=== PATIENT | male | born 1955 | race Caucasian/White ===

== ENCOUNTER 2016-04-15 17:30 | Emergency (ER) | payer OTHER ==
[~2016-04-15] VITALS: Ht 180.3 cm; Wt 65.8 kg
[2016-04-15 18:24] VITALS: BP 134/77
[2016-04-15] MEDS ORDERED: LORAZEPAM 1 MG TABLET ONE (19:24)
[2016-04-15] MEDS ORDERED: LORAZEPAM 1 MG TABLET PO ONE (19:30)
== END 2016-04-15 19:33 | disposition home or self-care (01) ==
LOC: ER 17:38
DX: F41.9 Anxiety disorder, unspecified (principal); F17.200 Nicotine dependence, unspecified, uncomplicated
CPT/HCPCS: 99284; A4606; Z7610

== ENCOUNTER 2016-04-17 17:25 | Emergency (ER) | payer OTHER ==
[~2016-04-17] VITALS: Ht 180.3 cm; Wt 54.9 kg
[2016-04-17] MEDS ORDERED: LORAZEPAM 1 MG TABLET ONE ×2 (17:34→21:31)
[2016-04-17 17:42] LABS: BASOPHILS # (AUTO) 0.1 /CMM (0.0-0.2); BASOPHILS % (AUTO) 0.8 % (0.0-2.0); DIFF TOTAL % 100 %; EOSINOPHILS # (AUTO) 0.1 /CMM (0.0-0.7); EOSINOPHILS % (AUTO) 0.8 % (0.0-6.0); HEMATOCRIT 40 % (39-51); HEMOGLOBIN 13.3 g/dL (13.5-17.5); LYMPHOCYTES # (AUTO) 1.3 /CMM (0.8-4.8); LYMPHOCYTES % (AUTO) 13.6 % (20.0-44.0); MEAN CORPUSCULAR HEMOGLOBIN 32 PG (26.0-33.0); MEAN CORPUSCULAR HGB CONC 33 g/dl (31.0-36.0); MEAN CORPUSCULAR VOLUME 98 fL (80-96); MONOCYTES # (AUTO) 0.5 /CMM (0.1-1.30); MONOCYTES % (AUTO) 4.8 % (2.0-12.0); NEUTROPHILS # (AUTO) 7.5 /CMM (1.8-8.9); PLATELET COUNT (AUTO) 265 /CMM (150-450); RED BLOOD CELL COUNT(AUTO) 4.12 MIL/uL (4.5-6.0); WHITE BLOOD COUNT (AUTO) 9.5 K/uL (4.3-11.0)
[2016-04-17 17:51] LABS: ANION GAP 11 (5-14); CARBON DIOXIDE 30 mmol/L (21-32); CHLORIDE 106 mmol/L (98-107); CREATININE 0.9 mg/dL (0.6-1.3); GFR 87 mL/min (>60); GLUCOSE 117 mg/dL (74-106); POTASSIUM 3.8 mmol/L (3.5-5.1); SODIUM SERUM 143 mmol/L (136-145); UREA NITROGEN, BLOOD 14 mg/dL (7-18)
[2016-04-17] MEDS ORDERED: LORAZEPAM 1 MG TABLET PO ONE ×2 (18:00→21:30)
[2016-04-17 18:40] LABS: CANNABINOID, URINE NEGATIVE (NEGATIVE); PHENCYCLIDINE SCREEN,URINE NEGATIVE (NEGATIVE)
[2016-04-17 20:58] VITALS: BP 118/65
[2016-04-17] MEDS ORDERED: LORAZEPAM INJ 2 MG/ML VIAL ONE (21:30)
== END 2016-04-17 22:02 ==
LOC: ER 17:27
DX: F41.9 Anxiety disorder, unspecified (principal); R41.82 Altered mental status, unspecified; F17.200 Nicotine dependence, unspecified, uncomplicated
CPT/HCPCS: 36415; 80048; 80305; 85025; 99285; A4606; G0480; Z7610; J2060

== ENCOUNTER 2016-09-06 11:23 | Emergency (ER) | payer OTHER ==
[~2016-09-06] VITALS: Ht 172.7 cm; Wt 56.7 kg
[2016-09-06 11:25] VITALS: BP 152/90
[2016-09-06] MEDS ORDERED: OLANZAPINE 5 MG TABLET ONE (12:16)
[2016-09-06] MEDS ORDERED: LORAZEPAM 1 MG TABLET ONE (12:16)
[2016-09-06] MEDS ORDERED: OLANZAPINE 5 MG TABLET PO ONE (12:30)
[2016-09-06] MEDS ORDERED: LORAZEPAM 1 MG TABLET PO ONE (12:30)
== END 2016-09-06 13:45 | disposition home or self-care (01) ==
LOC: ER 11:24
DX: F41.9 Anxiety disorder, unspecified (principal); F20.9 Schizophrenia, unspecified; F17.200 Nicotine dependence, unspecified, uncomplicated
CPT/HCPCS: A4606; Z7610

== ENCOUNTER 2016-10-09 12:06 | Emergency (ER) | payer OTHER ==
[~2016-10-09] VITALS: Ht 172.7 cm; Wt 59.0 kg
[2016-10-09 12:12] VITALS: BP 133/93
--- NOTE | 2016-10-09 12:55 | NUR ---
DANETTE REYES AT BEDSIDE FOR EVAL
[2016-10-09] MEDS ORDERED: LORAZEPAM 1 MG TABLET ONE (13:18)
[2016-10-09] MEDS ORDERED: OLANZAPINE 5 MG TABLET ONE (13:19)
[2016-10-09] MEDS ORDERED: BENZTROPINE MESYLATE (1 MG) 1 MG TABLET ONE (13:20)
[2016-10-09] MEDS ORDERED: OLANZAPINE 5 MG/TAB.RAPDIS PO ONE (13:30)
[2016-10-09] MEDS ORDERED: BENZTROPINE MESYLATE (1 MG) 1 MG TABLET PO ONE (13:30)
[2016-10-09] MEDS ORDERED: LORAZEPAM 1 MG TABLET PO ONE (13:30)
== END 2016-10-09 14:08 | disposition home or self-care (01) ==
LOC: ER 12:08
DX: F41.9 Anxiety disorder, unspecified (principal); F25.9 Schizoaffective disorder, unspecified; F17.200 Nicotine dependence, unspecified, uncomplicated
CPT/HCPCS: A4606; Z7610

== ENCOUNTER 2016-10-22 14:19 | Inpatient (IN) | payer OTHER ==
[~2016-10-22] VITALS: Ht 180.3 cm; Wt 52.2 kg
--- NOTE | 2016-10-22 14:20 | NUR ---
PT BECKA FROM HOME. HERE FOR ANXIETY, REQUESTING MEDS. SEEN IN ER FOR SAME REASON. DENIES SI/HI. PLACED ON MONITOR. NAD NOTED. AWAITING MD HEBERT.
--- NOTE | 2016-10-22 14:42 | NUR ---
CALLED RASHMI FOR PSYCH EVALUATION.
[2016-10-22] MEDS ORDERED: OLANZAPINE 5 MG TABLET ONE (14:51)
--- NOTE | 2016-10-22 14:51 | NUR ---
DR GRULLON AT BEDSIDE FOR EVAL.
[2016-10-22] MEDS ORDERED: OLANZAPINE 5 MG TABLET PO ONE (15:00)
[2016-10-22] MEDS ORDERED: BENZ2TAB7 PO (16:06)
[2016-10-22] MEDS ORDERED: DONE5TAB34 PO (16:06)
[2016-10-22] MEDS ORDERED: LORA2TAB PO (16:06)
[2016-10-22] MEDS ORDERED: OLAN20TA3 PO (16:06)
[2016-10-22 16:16] LABS: APPEARANCE,URINE Clear (CLEAR); BILIRUBIN,URINE Negative (NEGATIVE); BLOOD, URINE Trace-intact Ery/uL (NEGATIVE); COLOR,URINE Yellow (YELLOW); KETONES,URINE Negative (NEGATIVE); LEUKOCYTE ESTERASE ,URINE Trace (NEGATIVE); NITRITE, URINE Negative (NEGATIVE); PROTEIN,URINE Trace mg/dl (NEGATIVE); UGLUCOSE Negative (NEGATIVE); UROBILINOGEN,URINE 0.2 EU/dL (0.2)
[2016-10-22 16:23] LABS: BASOPHILS # (AUTO) 0.1 /CMM (0.0-0.2); BASOPHILS % (AUTO) 0.7 % (0.0-2.0); EOSINOPHILS % (AUTO) 0.3 % (0.0-6.0); HEMATOCRIT 44 % (39-51); HEMOGLOBIN 14.5 g/dL (13.5-17.5); LYMPHOCYTES # (AUTO) 1.2 /CMM (0.8-4.8); LYMPHOCYTES % (AUTO) 13.8 % (20.0-44.0); MEAN CORPUSCULAR HEMOGLOBIN 32 PG (26.0-33.0); MEAN CORPUSCULAR HGB CONC 33 g/dl (31.0-36.0); MEAN CORPUSCULAR VOLUME 98 fL (80-96); MONOCYTES # (AUTO) 0.3 /CMM (0.1-1.30); MONOCYTES % (AUTO) 2.9 % (2.0-12.0); NEUTROPHILS # (AUTO) 7.4 /CMM (1.8-8.9); NEUTROPHILS % (AUTO) 82.3 % (43.0-81.0); PLATELET COUNT (AUTO) 298 /CMM (150-450); RED BLOOD CELL COUNT(AUTO) 4.51 MIL/uL (4.5-6.0)
[2016-10-22 16:29] LABS: BACTERIA,URINE Few /HPF (None Seen); SQUAMOUS EPITHELIAL CELL,UR Rare /HPF (None Seen)
[2016-10-22 16:32] LABS: CALCIUM, SERUM 9.3 mg/dL (8.5-10.1); CARBON DIOXIDE 28 mmol/L (21-32); CHLORIDE 105 mmol/L (98-107); CREATININE 0.7 mg/dL (0.6-1.3); GLUCOSE 104 mg/dL (74-106); POTASSIUM 4.2 mmol/L (3.5-5.1); SODIUM SERUM 141 mmol/L (136-145); UREA NITROGEN, BLOOD 16 mg/dL (7-18)
[2016-10-22 16:36] LABS: ALANINE AMINOTRANSFERASE 19 U/L (12-78); ALBUMIN 3.8 g/dL (3.4-5.0); ALCOHOL, BLOOD < 3 mg/dL (0-0); ALKALINE PHOSPHATASE 75 U/L (46-116); ASPARTATE AMINOTRANSFERASE 16 U/L (15-37); BILIRUBIN,DIRECT 0.1 mg/dL (0.0-0.2); BILIRUBIN,TOTAL 0.3 mg/dL (0.2-1.0); TOTAL PROTEIN, SERUM 7.1 g/dL (6.4-8.2)
[2016-10-22 16:39] LABS: TROPONIN I < 0.017 ng/mL (0.00-0.056)
[2016-10-22 16:58] LABS: THYROID STIMULATING HORMONE 0.481 uIU/mL (0.358-3.74)
--- NOTE | 2016-10-22 17:06 | NUR ---
REPORT GIVEN TO EDA. PT AWAITING TANSFER TO FLOOR.
[2016-10-22 17:14] LABS: BAND % (MANUAL) 0 % (0.0-5.0); BASOPHILS % (MANUAL) 0 % (0.0-2.0); EOSINOPHILS % (MANUAL) 0 % (0-4); LYMPHOCYTES % (MANUAL) 17 % (16-48); MONOCYTES % (MANUAL) 3 % (0-11.0); NEUTROPHILS % (MANUAL) 80 (42-76)
[2016-10-22] MEDS ORDERED: ACETAMINOPHEN 325 MG TABLET PO PRN (18:30)
[2016-10-22] MEDS ORDERED: MAGNESIUM HYDROXIDE 30 ML UDC PO PRN (18:30)
[2016-10-22] MEDS ORDERED: LORAZEPAM 0.5 MG TABLET PO PRN (18:30)
[2016-10-22] MEDS ORDERED: MAG HYDROX/AL HYDROX/SIMETH 30 ML UDC PO PRN (18:30)
--- NOTE | 2016-10-22 18:36 | NUR ---
LACQUER SPRAYER-NOTES ADMITTED 61 Y.O MALE PATIENT. PATIENT IS UNDER THE CARE OF DR. ODONNELL (PSYCHIATRIST) WHICH HE'S AWARE OF PATIENT ADMISSION IN THE UNIT WITH ORDERS. DR. YAÑEZ (MEDICAL MD) ALREADY RECONCILE PATIENT MEDICATIONS. PATIENT AWAKE,A/O X2 AMBULATORY WITH STEADY GAIT. VITAL SIGN TAKEN AND CONTRABAND DONE. WILL ENDORSE TO THE FEED MILL OPERATOR FOR THE ADMISSION PROCESS AND CONTINUITY OF CARE.
[2016-10-22 18:44] VITALS: BP 131/83
--- NOTE | 2016-10-22 19:40 | NUR ---
rn initial notes: received report from ana armstrong, pt admitted from home, a 61y/o male, living by himself, pt admitted for GD, pt is a/o x2 cooperative, ambulatory, with steady gait, denies any pain or discomfort at this time, respiration even and unlabored, pt denies any plans of hurting himself, denies any visual or auditory hallucination, patient is frail looking, dirty, unkempt with long dirty fingernails and toenails, pt on 5150 hold under the care of dr penny psychiatrist, and dr augustin for medical issues, safety precautions initiated, will continue to monitor patient for safety [id number] and for any changes in behavior.
[2016-10-22 20:00] VITALS: BP 136/59
--- NOTE | 2016-10-22 20:00 | NUR ---
rn notes: maxillofacial prosthetics dentist assited pt to take shower, afterwards body check performed, taken photos of skin issues printed and attached to chart, patient stated he feels a lot better after taking a shower, also pt noted to be lip smacking, no dentures,
--- NOTE | 2016-10-22 20:42 | NUR ---
rn notes: received phone call from patient's brother, jossie guerrero, asking about pt's condition and behavior, and stated he will call back tomorrow to check again about his brother. patient's brother is very appreciative of how his brother is being taken care of.
[2016-10-22] MEDS: ZOLPIDEM TARTRATE 5 MG TABLET PO PRN (21:56)
--- NOTE | 2016-10-22 21:56 | NUR ---
PRN AMBIEN: PT REQUESTED FOR AMBIEN FOR SLEEPING, PRN AMBIEN 5MG TAB PO ADMINISTERED TO THE PT
--- NOTE | 2016-10-23 03:11 | NUR ---
PRN TYLENOL: PT C/O HEAD ACHE 05/13 REQUESTING FOR TYLENOL, PRN TYLENOL 650 MG TAB PO ADMINISTERED TO THE PT AT THIS TIME
--- NOTE | 2016-10-23 06:51 | NUR ---
RN CLOSING NOTES: PT IN BED, AWAKE, REMAINS A/O X2-3, DENIES ANY SOB, DENIES ANY CHEST PAIN OR DISCOMFORT EXCEPT THAT HE'S C/O HE'S HUNGRY, SNACK PROVIDED TO THE PT, AND INFORMED THAT BREAKFAST WILL BE AT 0745 TO 0800AM. NO UNTOWARD EVENT HAPPENED THROUGHOUT THE SHIFT, PT REMAINS CALM AND COOPERATIVE, DENIES ANY SI/HI, WILL ENDORSE TO DAY RN FOR MEG.
[2016-10-23 07:40] LABS: ALBUMIN 3.6 g/dL (3.4-5.0); BILIRUBIN,TOTAL 0.4 mg/dL (0.2-1.0); CALCIUM, SERUM 9.5 mg/dL (8.5-10.1); CREATININE 0.8 mg/dL (0.6-1.3); POTASSIUM 4.2 mmol/L (3.5-5.1); TOTAL PROTEIN, SERUM 7.1 g/dL (6.4-8.2)
[2016-10-23 08:04] VITALS: BP 111/51
[2016-10-23] MEDS: DONEPEZIL 5 MG TABLET PO SCH (09:03)
[2016-10-23] MEDS: BENZTROPINE MESYLATE (1 MG) 1 MG TABLET PO SCH ×2 (12:08→17:10)
[2016-10-23] MEDS: ESCITALOPRAM OXALATE (10 MG) 10 MG TABLET PO SCH (12:08)
[2016-10-23] MEDS: OLANZAPINE 5 MG/TAB.RAPDIS PO SCH ×2 (12:09→21:28)
[2016-10-23 16:00] VITALS: BP 127/77
[2016-10-23 20:06] VITALS: BP 132/86
[2016-10-23] MEDS: ZOLPIDEM TARTRATE 5 MG TABLET PO PRN (21:28)
[2016-10-24 08:00] VITALS: BP 127/72
[2016-10-24] MEDS: ESCITALOPRAM OXALATE (10 MG) 10 MG TABLET PO SCH (08:19)
[2016-10-24] MEDS: DONEPEZIL 5 MG TABLET PO SCH (08:19)
[2016-10-24] MEDS: BENZTROPINE MESYLATE (1 MG) 1 MG TABLET PO SCH ×2 (08:20→16:48)
[2016-10-24] MEDS: OLANZAPINE 5 MG/TAB.RAPDIS PO SCH ×2 (08:20→21:08)
[2016-10-24] MEDS: NICOTINE PATCH (21MG) 21 MG PATCH.TD24 TD SCH (08:20)
--- NOTE | 2016-10-24 14:23 | NUR ---
[id number]: PT IS A CURRENT SMOKER AND IS ON NICOTINE PATCH 21 MG DAILY.
--- NOTE | 2016-10-24 14:31 | NUR ---
UR update: billet worker spoke to TIMOTHY ABRAMS PHONE [phone] regarding clinical review. Timothy stated that a clinical review was due October 29, 2016 and should be faxed to Emily Gallo at [phone]. billet worker will follow-up.
[2016-10-24 16:00] VITALS: BP 95/63
--- NOTE | 2016-10-24 16:30 | NUR ---
Initial Discharge Note: Patient lives at home with his brother [address] [facility]. [address] [place] [address]. ([phone]). Patient wants to return home upon discharge. maintenance and repair worker spoke to patient's brother Niles Quan ([phone]) who stated that he would like patient to return home upon discharge. maintenance and repair worker will help form a safe and proper discharge.
[2016-10-24 16:33] LABS: CHOLESTEROL 164 mg/dL (<200); HDL CHOLESTEROL 42 mg/dL (40-60); LDL 100 mg/dL (0-99); TRIGLYCERIDES 120 mg/dL (30-150)
[2016-10-24] MEDS: BOOST PLUS FOOD-VANILLA 237 ML BOX PO SCH (18:13)
[2016-10-24] MEDS: ZOLPIDEM TARTRATE 5 MG TABLET PO PRN (21:09)
[2016-10-24 22:16] VITALS: BP 107/67
[2016-10-25 08:00] VITALS: BP 112/83
[2016-10-25] MEDS: ESCITALOPRAM OXALATE (10 MG) 10 MG TABLET PO SCH (08:14)
[2016-10-25] MEDS: NICOTINE PATCH (21MG) 21 MG PATCH.TD24 TD SCH (08:14)
[2016-10-25] MEDS: OLANZAPINE 5 MG/TAB.RAPDIS PO SCH ×2 (08:14→21:11)
[2016-10-25] MEDS: BENZTROPINE MESYLATE (1 MG) 1 MG TABLET PO SCH ×2 (08:14→16:06)
[2016-10-25] MEDS: DONEPEZIL 5 MG TABLET PO SCH (08:15)
[2016-10-25] MEDS: BOOST PLUS FOOD-VANILLA 237 ML BOX PO SCH ×2 (08:46→16:06)
--- NOTE | 2016-10-25 11:50 | NUR ---
WOUND CARE CONSULT: PT SEEN FOR FEET AND TOES. PT NOTED TO HAVE DISCOLORATION TO RT ANKLE AREA AND NOTED TO HAVE VERY LONG THICKENED NAILS. RECOMMEND PODIATRY. DISCUSSED WITH NURSING STAFF. PT IS AMBULATORY AND CONTINENT. CURRENT SHAI SCORE IS 19.
--- NOTE | 2016-10-25 13:16 | NUR ---
Per patient's brother Niles Quan, Patient has a perinatal social worker Angel Harper ([phone]). kitchen and counter worker will follow-up.
[2016-10-25 15:56] VITALS: BP 134/70
[2016-10-25 20:10] VITALS: BP 106/61
[2016-10-25] MEDS: ZOLPIDEM TARTRATE 5 MG TABLET PO PRN (21:11)
[2016-10-26 08:00] VITALS: BP 108/75
[2016-10-26] MEDS: BENZTROPINE MESYLATE (1 MG) 1 MG TABLET PO SCH ×2 (08:16→17:55)
[2016-10-26] MEDS: DONEPEZIL 5 MG TABLET PO SCH (08:17)
[2016-10-26] MEDS: OLANZAPINE 5 MG/TAB.RAPDIS PO SCH ×2 (08:17→21:37)
[2016-10-26] MEDS: NICOTINE PATCH (21MG) 21 MG PATCH.TD24 TD SCH (08:17)
[2016-10-26] MEDS: ESCITALOPRAM OXALATE (10 MG) 10 MG TABLET PO SCH (08:17)
[2016-10-26] MEDS: BOOST PLUS FOOD-VANILLA 237 ML BOX PO SCH ×2 (08:20→17:56)
--- NOTE | 2016-10-26 11:17 | NUR ---
cable worker helper spoke to patient's high school social studies teacher Angel Harper ([phone]) from the [facility]. Angel stated that he would fax over a list of medications and requested for the H&P to be faxed to patient's psychiatrist Dr. Burns (fax: [phone]/ phone: [phone]) upon discharge. cable worker helper will follow-up.
--- NOTE | 2016-10-26 11:26 | NUR ---
logging worker spoke to patient's brother Niles Quan ([phone]) who stated that he cannot pickup driver the patient but would be home to greet the patient. Per patient's brother, patient can be transported via taxi. logging worker will follow-up.
--- NOTE | 2016-10-26 11:53 | NUR ---
Per patient's social security assessor Arvind Harper ([phone]), patient has an appointment with his psychiatrist Dr. Burns On November 04, 2016 at 3:15pm [id number] [place] [address]. [address]nd floor, [place] [address] ([phone]).
[2016-10-26 16:07] VITALS: BP 98/58
--- NOTE | 2016-10-26 19:30 | NUR ---
RN NOTES RECEIVED PATIENT IN BED AWAKE, AO X 3, ABLE TO MAKE NEEDS KNOWN. NO ACUTE DISTRESS NOTED. DENIES ANY PAIN AT THIS TIME. SAFETY REMINDERS GIVEN. ON LOW BED WITH BILATERAL SIDE RAILS UP. WILL CONTINUE TO MONITOR Q 15 MINS AND PRN.
[2016-10-26 20:00] VITALS: BP 102/54
[2016-10-26 20:10] VITALS: BP 102/54
[2016-10-26] MEDS: ZOLPIDEM TARTRATE 5 MG TABLET PO PRN (21:39)
--- NOTE | 2016-10-27 06:14 | NUR ---
RN NOTES PATIENT IN BED ASLEEP, AROUSABLE. RESPIRATIONS EVEN. NO SIGNS OF PAIN NOTED. DUE MEDS GIVEN WITH NO ASE NOTED. NEEDS ATTENDED. SAFETY PRECAUTIONS AND COMFORT MEASURES IN PLACE. WILL GIVE REPORT TO DAY SHIFT FOR CONTINUITY OF CARE.
[2016-10-27 08:00] VITALS: BP 111/58
[2016-10-27] MEDS: DONEPEZIL 5 MG TABLET PO SCH (08:38)
[2016-10-27] MEDS: NICOTINE PATCH (21MG) 21 MG PATCH.TD24 TD SCH (08:38)
[2016-10-27] MEDS: ESCITALOPRAM OXALATE (10 MG) 10 MG TABLET PO SCH (08:39)
[2016-10-27] MEDS: BENZTROPINE MESYLATE (1 MG) 1 MG TABLET PO SCH ×2 (08:39→16:23)
[2016-10-27] MEDS: OLANZAPINE 5 MG/TAB.RAPDIS PO SCH ×2 (08:39→21:36)
[2016-10-27] MEDS: BOOST PLUS FOOD-VANILLA 237 ML BOX PO SCH ×2 (10:23→18:13)
[2016-10-27 15:35] VITALS: BP 101/76
[2016-10-27 20:00] VITALS: BP 126/71
[2016-10-27] MEDS: ZOLPIDEM TARTRATE 5 MG TABLET PO PRN (21:37)
[2016-10-28 08:00] VITALS: BP 115/83
[2016-10-28] MEDS: BOOST PLUS FOOD-VANILLA 237 ML BOX PO SCH ×2 (08:17→17:15)
[2016-10-28] MEDS: BENZTROPINE MESYLATE (1 MG) 1 MG TABLET PO SCH ×2 (09:04→17:16)
[2016-10-28] MEDS: ESCITALOPRAM OXALATE (10 MG) 10 MG TABLET PO SCH (09:04)
[2016-10-28] MEDS: DONEPEZIL 5 MG TABLET PO SCH (09:04)
[2016-10-28] MEDS: NICOTINE PATCH (21MG) 21 MG PATCH.TD24 TD SCH (09:04)
[2016-10-28] MEDS: OLANZAPINE 5 MG/TAB.RAPDIS PO SCH ×2 (09:06→22:00)
--- NOTE | 2016-10-28 14:29 | NUR ---
Discharge note: discharge back home with his brother, Niles [phone] to [address] [facility] [address] [facility] [address]. Pt's brother arranged transportation to picker and sorter load and unload at 1:00PM but they may be late. Per Arvind Harper ([phone]), patient has an appointment with his psychiatrist Dr. Burns On November 04, 2016 at 3:15pm [address] [facility]. [address]nd floor, [place] [address] ([phone]) and will discuss substance abuse. Pt. is a smoker, hence, referred to [facility] at [address] [facility] on Monday at 5:30 PM. Pt's discharge instructions will be provided to the patient.
[2016-10-28 15:54] VITALS: BP 120/68
[2016-10-28 20:00] VITALS: BP 108/59
[2016-10-28] MEDS: ZOLPIDEM TARTRATE 5 MG TABLET PO PRN (22:00)
[2016-10-29 08:00] VITALS: BP 108/67
--- NOTE | 2016-10-29 08:32 | NUR ---
DR. ODONNELL GAVE AN ORDER TO D/C HOLD AND D/C TODAY. PT. WITHOUT DISTRESS, DENIES SUICIDAL AND HOMICIDAL. TO FOLLOW UP WITH PSYCH AND MEDICAL DOCTORS.
[2016-10-29] MEDS: BOOST PLUS FOOD-VANILLA 237 ML BOX PO SCH (08:33)
[2016-10-29] MEDS: ESCITALOPRAM OXALATE (10 MG) 10 MG TABLET PO SCH (08:55)
[2016-10-29] MEDS: OLANZAPINE 5 MG/TAB.RAPDIS PO SCH (08:55)
[2016-10-29] MEDS: NICOTINE PATCH (21MG) 21 MG PATCH.TD24 TD SCH (08:55)
[2016-10-29] MEDS: BENZTROPINE MESYLATE (1 MG) 1 MG TABLET PO SCH (08:55)
[2016-10-29] MEDS: DONEPEZIL 5 MG TABLET PO SCH (08:55)
--- NOTE | 2016-10-29 10:11 | NUR ---
CALLED JOSE ALBERTO THE BROTHER AT [phone] AND WAS NOTIFIED ABOUT THE DISCHARGE AND SAID HIS OTHER BROTHER WILL COME TO PICK HIM UP AT 1:00 PM.
--- NOTE | 2016-10-29 13:32 | NUR ---
SHREDDED FILLER MACHINE WRAPPER LAYER-NOTES PATIENT D/Cd TO HOME TODAY. DR. ODONNELL AND DR. FLEMING AWARE AND AGREES OF PATIENT DISCHARGE.PATIENT DID NOT VERBALIZE SI/HI,DENIES VISUAL/AUDITORY HALLUCINATIONS AT THE TIME OF DISCHARGE. ALL DISCHARGE MEDICATIONS WAS REVIEWED WITH THE PATIENT AND HIS BROTHER ZIGGY. RX WAS GIVEN TO THE BROTHER. PATIENT REFUSED BODY ASSESSMENT PRIOR TO THE DISCHARGE. PATIENT LEFT THE UNIT IN STABLE CONDITION WITH ALL HIS BELONGINGS. WAS EAR PULL MACHINE OPERATOR BY HIS BROTHER ZIGGY VIA PRIVATE CAR.
== END 2016-10-29 13:30 | disposition home or self-care (01) | DRG 885 ==
LOC: ER 14:21 → GPS 16:50
PROVIDERS: ADMIT Psychiatry & Neurology Psychiatry; ATTEND Psychiatry & Neurology Psychiatry
DX: F25.1 Schizoaffective disorder, depressive type (principal); F29 Unspecified psychosis not due to a substance or known physiological condition; Z91.14 Patient's other noncompliance with medication regimen; F41.0 Panic disorder [episodic paroxysmal anxiety]; Z79.899 Other long term (current) drug therapy; F17.200 Nicotine dependence, unspecified, uncomplicated; Z73.6 Limitation of activities due to disability
CPT/HCPCS: 36415; 80048-TC; 80053-TC; 80061-TC; 80076-TC; 80305; 81000-TC; 84443-TC; 84484-TC; 85025-TC; 87081-TC; A4606; G0480; Z7610

== ENCOUNTER 2017-02-12 12:53 | Emergency (ER) | payer OTHER ==
[~2017-02-12] VITALS: Ht 182.9 cm; Wt 68.0 kg
[~2017-02-12 12:53] MED LIST: BENZ2TAB7 PO; DONE5TAB34 PO; LORA2TAB PO; OLAN20TA3 PO
[2017-02-12 13:54] VITALS: BP 135/84
[2017-02-12] MEDS ORDERED: LORAZEPAM 1 MG TABLET ONE (14:07)
[2017-02-12] MEDS ORDERED: LORAZEPAM 1 MG TABLET PO ONE (14:30)
== END 2017-02-12 14:20 | disposition home or self-care (01) ==
LOC: ER 12:54
DX: F41.9 Anxiety disorder, unspecified (principal); F17.200 Nicotine dependence, unspecified, uncomplicated
CPT/HCPCS: A4606; Z7610

== ENCOUNTER 2017-04-21 13:31 | Emergency (ER) | payer OTHER ==
[~2017-04-21] VITALS: Ht 180.3 cm; Wt 49.9 kg
[2017-04-21 13:41] VITALS: BP 114/64
[2017-04-21 15:13] LABS: APPEARANCE,URINE CLEAR (CLEAR); BILIRUBIN,URINE NEGATIVE (NEGATIVE); BLOOD, URINE TRACE-INTA Ery/uL (NEGATIVE); COLOR,URINE YELLOW (YELLOW); KETONES,URINE NEGATIVE (NEGATIVE); LEUKOCYTE ESTERASE ,URINE TRACE (NEGATIVE); NITRITE, URINE NEGATIVE (NEGATIVE); PROTEIN,URINE 1+ mg/dl (NEGATIVE); UGLUCOSE NEGATIVE (NEGATIVE); UROBILINOGEN,URINE 0.2 EU/dL (0.2)
[2017-04-21] MEDS ORDERED: TEMAZEPAM 15 MG CAPSULE PO PRN (15:30)
[2017-04-21] MEDS ORDERED: PHENAZOPYRIDINE HCL 200 MG TABLET PO ONE (15:30)
[2017-04-21] MEDS ORDERED: TEMAZEPAM 15 MG CAPSULE ONE (15:34)
[2017-04-21] MEDS ORDERED: PHENAZOPYRIDINE HCL 200 MG TABLET ONE (15:35)
[2017-04-21 15:45] LABS: BACTERIA,URINE Few /HPF (None Seen); SQUAMOUS EPITHELIAL CELL,UR Few /HPF (None Seen)
--- NOTE | 2017-04-21 16:05 | NUR ---
BLADDER SCANNED WITH NOTED 85ML FLUID. PA MADE AWARE.
== END 2017-04-21 16:17 | disposition home or self-care (01) ==
LOC: ER 13:32
DX: N39.0 Urinary tract infection, site not specified (principal); F41.9 Anxiety disorder, unspecified; F17.200 Nicotine dependence, unspecified, uncomplicated; F20.0 Paranoid schizophrenia
CPT/HCPCS: 81001; 87077; 87086; 87186; 99284; A4606; 81000-TC; Z7610